=== PATIENT | male | born 1960 | race Caucasian/White ===

== ENCOUNTER 2019-09-26 21:34 | Emergency (ER) | payer BC ==
[~2019-09-26] VITALS: Ht 182.9 cm; Wt 89.8 kg
[2019-09-26 21:45] VITALS: Ht 182.9 cm; Wt 89.8 kg
[2019-09-26 22:31] LABS: BASOPHIL % 0.5 % (0-2); PLATELET COUNT 214 x10^3mcL (130-400); RED CELL DISTRIBUTION WIDTH 12.8 % (11.5-14.5)
[2019-09-26 23:15] LABS: CALCIUM 8.3 mg/dL (8.5-10.1); CARBON DIOXIDE 23.3 mmol/L (21-32); CHLORIDE SERUM 106 mmol/L (98-107); CREATININE SERUM 0.8 mg/dL (0.7-1.3); GFR1 > 60 mL/min; GLUCOSE SERUM 115 mg/dL (74-106); POTASSIUM SERUM 3.9 mmol/L (3.5-5.1); SODIUM SERUM 140 mmol/L (136-145)
[2019-09-26 23:20] LABS: ALBUMIN 3.4 g/dL (3.4-5.0); ALKALINE PHOSPHATASE 30 U/L (46-116); ALT/SGPT 33 U/L (16-63); AST/SGOT 23 U/L (15-37); BILIRUBIN TOTAL 0.3 mg/dL (0.20-1.00); TOTAL PROTEIN, SERUM 6.8 g/dL (6.4-8.2)
[2019-09-27 02:15] VITALS: BP 112/77
== END 2019-09-27 02:00 | disposition home or self-care (01) ==
LOC: ED 21:34
DX: M94.0 Chondrocostal junction syndrome [Tietze] (principal)
CPT/HCPCS: 36415; Q0092